=== PATIENT | male | born 1950 | race Caucasian/White ===

== ENCOUNTER 2018-06-29 13:34 | Observation (INO) | payer OTHER ==
[~2018-06-29] VITALS: Ht 185.4 cm; Wt 103.1 kg
[2018-06-29] VITALS (8 sets, daily range): BP systolic 112–146; BP diastolic 61–103
[2018-06-29 15:04] LABS: HEMOGLOBIN 11.9 G/DL (12.5-16.6); MCH 28.5 PG (29.0-34.0); MCV 83.7 FL (86-99); PLATELET COUNT 110 K/uL (156-360); RBC DIS.WIDTH-SD 66.2 % (39-53); RED BLOOD COUNT 4.18 M/uL (4.00-5.50); WHITE BLOOD COUNT 6.7 K/uL (4.1-10.2)
[2018-06-29 15:26] LABS: TROP-I INTERPRETATION NEGATIVE; TROPONIN-I < 0.01 ng/mL (0.0-0.30)
[2018-06-29 15:27] LABS: CHLORIDE 103 mEq/L (99-109); POTASSIUM 4.7 mEq/L (3.7-5.4); SODIUM 137 mEq/L (136-147)
[2018-06-29 15:29] LABS: GLUCOSE 131 mg/dL (70-99)
[2018-06-29 15:33] LABS: CREATININE 0.8 mg/dL (0.6-1.3); GFR ESTIMATE (CALCULATED) > 59 mL/min/ (58.99-99999)
[2018-06-29 15:34] LABS: UREA NITROGEN (BUN) 11 mg/dL (9-23)
[2018-06-29 16:38] LABS: INTER. NORMALIZED RATIO ND
[2018-06-29] MEDS ORDERED: DOFETILIDE125 MCG PO (16:52)
[2018-06-29] MEDS ORDERED: TOPROL XL100 MG PO (16:52)
[2018-06-29] MEDS ORDERED: COUMADIN1 MG PO (16:53)
[2018-06-29] MEDS ORDERED: COUMADIN4 MG PO (16:53)
[2018-06-29] MEDS ORDERED: ADULT ASPIRIN R81 MG PO (16:53)
[2018-06-29] MEDS ORDERED: SYNTHROID150 MCG PO (16:54)
[2018-06-29] MEDS ORDERED: IRON325 M1 PO (16:54)
[2018-06-29] MEDS ORDERED: LISINOPRIL20 MG PO (16:54)
[2018-06-29] MEDS ORDERED: AMMONIUM LACTA224 GM TP (16:55)
[2018-06-29] MEDS ORDERED: FLOMAX0.4 MG PO (16:55)
[2018-06-29] MEDS ORDERED: GLUCOPHAGE XR,500 MG PO (16:55)
[2018-06-29] MEDS ORDERED: TYLENOL EXTRA500 MG PO (16:56)
[2018-06-29 18:42] LABS: INTER. NORMALIZED RATIO 3.2
[2018-06-29 22:38] LABS: TROP-I INTERPRETATION NEGATIVE; TROPONIN-I < 0.01 ng/mL (0.0-0.30)
[2018-06-30] VITALS (7 sets, daily range): BP systolic 99–122; BP diastolic 67–89
[2018-06-30 05:40] LABS: INTER. NORMALIZED RATIO 3.1
[2018-06-30 06:01] LABS: TROP-I INTERPRETATION NEGATIVE; TROPONIN-I < 0.01 ng/mL (0.0-0.30)
== END 2018-06-30 17:32 | disposition home or self-care (01) ==
LOC: EME 13:34 → 4EAST 16:26 → EDOF 16:26 → ENRESERV 16:29 → 4EAST 19:27
PROVIDERS: Emergency Medicine; Hospitalist
PROC: 5A2204Z Restoration of Cardiac Rhythm, Single (ICD-10-PCS; principal; 2018-06-30)
DX: I48.2 Chronic atrial fibrillation (principal); I48.0 Paroxysmal atrial fibrillation; Z98.890 Other specified postprocedural states; I49.5 Sick sinus syndrome; Z95.0 Presence of cardiac pacemaker; Z79.82 Long term (current) use of aspirin; Z79.4 Long term (current) use of insulin; Z79.01 Long term (current) use of anticoagulants; Z88.1 Allergy status to other antibiotic agents; Z88.6 Allergy status to analgesic agent
CPT/HCPCS: 36415; 71046; 80048; 82948; 83735; 84443; 84484; 85027; 85610; 93005; 93306; 99281; 99285; G0378; J7050